=== PATIENT | female | born 1965 | race Caucasian/White ===

== ENCOUNTER 2022-11-25 09:09 | Emergency (ER) | payer BC, SELFPAY ==
[2022-11-25] VITALS (7 sets, daily range): BP systolic 137–187; BP diastolic 79–113; PULSE 78–102; RESP 18–20; TEMP 37; O2SAT 95–100
--- NOTE | ~2022-11-25 | CT_ITS ---
EXAMINATION: CT abdomen pelvis wo con DATE: 11/25/2022 10:31 INDICATION: Left flank pain TECHNIQUE: Computed tomography (CT) of the abdomen and pelvis was performed without intravenous contr ast. The dose-length product (DLP) was 419.26 mGy-cm. Automated exposure control and iterative recons truction technique were employed. 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 There is a small pericardial effusion. There is a 6 mm cyst of the liver. The s pleen, pancreas, gallbladder, and adrenal glands are normal. There is a 4 mm stone in the urinary cheri dder. There is mild left hydroureteronephrosis. A 3 mm nonobstructing stone is present in the left ki dney lower pole. There is a 2.4 cm cyst of the left kidney. The right kidney is unremarkable. No path ologically enlarged abdominal or pelvic lymph nodes are identified. No free intraperitoneal gas or ev idence of bowel obstruction. The appendix is normal. There is a small umbilical hernia containing fat . IMPRESSION: 1. 4 mm stone in the urinary bladder and mild left hydroureteronephrosis. Findings could reflect rece nt passage of a left ureteral stone. 2. Nonobstructing left nephrolithiasis. Reviewed, dictated and finalized at location A. IMPRESSION: 1. 4 mm stone in the urinary bladder and mild left hydroureteronephrosis. Findi ngs could reflect recent passage of a left ureteral stone. 2. Nonobstructing left nephrolithiasis.
--- NOTE | 2022-11-25 09:41 | ED.GENADULT ---
HPI - General Adult General Chief complaint: Back Pain/Injury Stated complaint: Left flank pain Time Seen by Provider: 11/25/22 09:26 Source: patient and family Mode of arrival: ambulatory Limitations: no limitations History of Present Illness HPI narrative: 57 years old white female presents with sudden onset of pain at the left side of her mid back, radiating to the lower abdomen like cramps associated with nausea, she denies any fever, chills, vomiting, diarrhea, constipation, vaginal bleeding or discharge. History of kidney stone. Related Data Allergies Allergy/AdvReac Type Severity Reaction Status Date / Time adhesive Allergy Unknown Blister Verified 11/25/22 09:28 meperidine Allergy Unknown Nausea and Verified 11/25/22 09:28 Vomiting Review of Systems Review of Systems: All systems reviewed & are unremarkable except as noted in HPI and below PMFSH Family History Family History Father Hypertension Family history of coronary artery disease Malignant neoplasm of prostate, Onset Age: 79 Cerebrovascular accident Family history of heart disease in male family member before age 55 Mother Hypertension Family history of malignant melanoma, Onset Age: 56 Patient's mother is Sibling Hypertension Family history of elevated blood lipids Cerebrovascular accident, Onset Age: 59 Grandparent Family history of lung cancer, Onset Age: 66 Family history of coronary artery disease Other Family history of lymphoma Family history of malignant neoplasm Social History Social History Smoking status: Never smoker Second hand tobacco smoke exposure: No Smoking end date: 09/02/86 Alcohol intake: current Exam Narrative: General appearance: Well-developed, well-nourished, restless Skin: Normal color Head: Normocephalic, nontraumatic Eyes: Clear conjunctiva ENT: Oropharynx normal, ears normal, nose normal Neck: Supple, nontender Chest and respiratory: Airway patent, no respiratory distress, no accessory muscle use Heart: Regular rate/rhythm Abdomen: Soft, severe tenderness left flank,, no organomegaly, quiet bowel sounds Vascular: Normal peripheral pulses, normal capillary refill. Musculoskeletal: Normal range of motion, nontender back Neurologic: Alert and oriented ?3, [employer] INSULATION is normal as tested, no gross motor deficit Course Vital Signs Vital signs: Vital Signs Pulse Rate 100 11/25/22 09:14 Respiratory Rate 20 11/25/22 09:14 Blood Pressure 187/97 H 11/25/22 09:14 Pulse Oximetry 100 11/25/22 09:14 Temperature 37.0 C 11/25/22 09:22 Pulse Rate 87 11/25/22 10:37 Respiratory Rate 18 11/25/22 10:37 Blood Pressure 137/84 11/25/22 10:37 Pulse Oximetry 98 11/25/22 10:37 Oxygen Delivery Room Air 11/25/22 09:22 Medical Decision Making [facility] Narrative Medical decision making narrative: Patient presents with left flank pain, physical exam showed restless patient with severe left flank tenderness, Differential diagnosis include kidney stone, urinary tract infection Patient had history of kidney stone. Work-up showed normal white count, normal electrolytes, urine positive for blood and 2+ leukocyte Estrace CT abdomen and pelvis without contrast showed 4 mm stone in the urinary bladder and mild left hydro ureteral nephrosis. Patient passed 4 mm stone in the distal urine strainer prior to discharge. Feeling much better. Diagnosis: Kidney stones, passed, urinary tract infection, discharged on Cipro. Differential Diagnosis Differential Diagnosis: Urinary tract infection, k
[2022-11-25 09:49] LABS: Basophils Absolute Auto 0.1 K/mm3 (0.0-0.1); Eosinophils Absolute Auto 0.4 K/mm3 (0-0.3); Eosinophils Percent Auto 3.6 % (0-4.4); Hematocrit 50.5 % (37.0-47.0); Hemoglobin 17.6 g/dL (12.0-15.0); Immature Granulocyte Absolute 0.04 K/mm3 (0.00-0.031); Immature Granulocyte Percent A 0.4 % (0-0.5); Lymphocytes Percent Auto 15.5 % (18.3-44.2); Mean Corpuscular HGB Conc 34.9 g/dl (32-36); Mean Corpuscular Hemoglobin 31.9 pg (26-34); Mean Corpuscular Volume 91.5 fl (80-100); Mean Platelet Volume 9.1 fl (7.4-10.4); Monocytes Absolute Auto 0.7 K/mm3 (0.1-0.6); Monocytes Percent Auto 7.1 % (2.6-8.5); Neutrophils Percent Auto 72.4 % (45.5-73.1); Platelet Count Result 371 k/mm3 (150-375); Red Blood Count 5.52 M/mm3 (4.2-5.4); Red Cell Distribution Width 12.9 % (11.5-14.5); White Blood Count 9.7 K/mm3 (4.5-10.0)
[2022-11-25] MEDS: TAMSULOSIN HCL 0.4 MG CAPSULE PO (09:54)
[2022-11-25] MEDS: HYDROmorphone HCL INJ (*CRX) 1 MG/ML SYR 0.5 MG IV PUSH (09:54)
[2022-11-25] MEDS: SODIUM CHLORIDE 0.9% IV 1,000 ML 999 ML IV CONT (09:54)
[2022-11-25] MEDS: ONDANSETRON INJ 4 MG/2 ML VIAL IV PUSH (09:54)
[2022-11-25 10:08] LABS: Alanine Aminotransferase 31 U/L (6-35); Albumin Level 4.9 g/dL (3.5-5.1); Alkaline Phosphatase 62 U/L (38-126); Anion Gap 8 mmol/L (8-16); Aspartate Amino Transferase 26 U/L (14-36); Bilirubin,Total 0.6 mg/dL (0.2-1.3); Blood Urea Nitrogen 25 mg/dL (7-17); Calcium 9.8 mg/dL (8.4-10.2); Carbon Dioxide 25 mmol/L (22-30); Chloride 104 mmol/L (98-107); Estimated CRCL calculation 51 ml/min; Estimated Glomerular Filt Rate > 60; Glucose 95 mg/dL (65-110); Potassium 4.1 mmol/L (3.4-5.0); Sodium 137 mmol/L (137-145)
[2022-11-25 10:20] LABS: Appearance Urine Turbid (Clear); Bacteria Urine 2+ /hpf; Bilirubin Urine 1+ (Negative); Blood Urine Negative (Negative); Calcium Oxalate Crystals Urine Present /hpf; Color Urine Dark Yellow (Yellow); Glucose Urine UA Negative (Negative); Ketones Urine 1+ mg/dL (Negative); Leukocyte Esterase Ur 2+ LEU/UL (Negative); Nitrate Urine Negative (Negative); Non Pathogenic Casts 0-2; Protein Urine Negative (Negative); Specific Grav Ur 1.024 (1.001-1.035); Squamous Epithelial Cell Urine Moderate /hpf (Few); WBC Urine 21-50 /hpf; pH Urine 5.5 (5.0-9.0)
[2022-11-25 10:28] LABS: Add Urine Microscopic? YES
[2022-11-25] MEDS: KETOROLAC 30 MG/ML VIAL (*BKC) IV PUSH (11:43)
== END 2022-11-25 11:58 | disposition home or self-care (01) ==
PROVIDERS: Emergency Provider Emergency Medicine; PCP Family Medicine Sports Medicine
DX: N13.2 Hydronephrosis with renal and ureteral calculous obstruction (principal); N39.0 Urinary tract infection, site not specified
CPT/HCPCS: 36415; 74176; 80053; 81001; 85025; 87086; 87088; 96361; 96374; 96375; 99284; A9270; J1170; J1885; J2405; J7030